=== PATIENT | female | born 1995 | race Caucasian/White ===

== ENCOUNTER 2024-11-05 13:35 | Outpatient (CLI) | payer BC, SELFPAY ==
--- NOTE | 2024-11-05 14:00 | CRLHL7_ITS ---
For Patients: As a result of the Cures Act, medical imaging exams and procedure reports are released immediately into your electronic medical record. You may view this report before your referring provider. If you have questions, please contact your health care provider. OB ULTRASOUND LESS THAN 14 WEEKS, 11/05/2024 CLINICAL HISTORY: Dating and viability. COMPARISON: None. TECHNIQUE: Real time lu scale imaging of the fetus was performed transvaginal. FINDINGS: Surgery: None. LMP: 09/07/2024. Imaging: TV. TAY by LMP: 06/14/2025. GA: 8 weeks 3 days. CRL: 0.5 cm, 6 weeks 2 days. TAY 06/29/2025. FHR: 109 bpm. GEST SAC: 1.2 cm, appears within normal limits. YOLK SAC: 60 mm, appears within normal limits. RIGHT OVARY: 3.5 x 2.2 x 2.5 cm, within normal limits. LEFT OVARY: 4.0 x 2.8 x 2.9 cm CL. Within normal limits. IMPRESSION: 1. Single living intrauterine with sonographic gestational age measuring 6 weeks 2 days and sonographic due date 06/29/2025. 2. Subchorionic hemorrhage is present measuring 2.8 x 1.1 x 0.5 cm. Elder Berrios M.D. Diagnostic Radiologist [email or web address] Transcribed: 3:39 pm DW/Dictated by: Elder Berrios MD @ 11/05/2024 3:23:00 PM (Electronically Signed)
== END 2024-11-05 13:36 | disposition home or self-care (01) ==
LOC: US 13:35
PROVIDERS: Visit Provider Physician Assistant
DX: Z34.91 Encounter for supervision of normal pregnancy, unspecified, first trimester (principal); O20.9 Hemorrhage in early pregnancy, unspecified; Z3A.01 Less than 8 weeks gestation of pregnancy
CPT/HCPCS: 76817

== ENCOUNTER 2024-11-16 07:18 | Outpatient (CLI) | payer BC, SELFPAY ==
--- NOTE | 2024-11-16 07:15 | CRLHL7_ITS ---
For Patients: As a result of the Century Cures Act, medical imaging exams and procedure reports are released immediately into your electronic medical record. You may view this report before your referring provider. If you have questions, please contact your health care provider. INDICATION: First trimester dating and viability. TECHNIQUE: Ultrasound OB pelvis transabdominal and transvaginal. Real-time lu-scale imaging of the pelvis was performed. COMPARISON: Ultrasound pelvis October 2024 FINDINGS: Intrauterine pole is identified with a CRL of 6 mm, corresponding to 6 weeks 2 day. No heart rate is identified in the current ultrasound. Yolk sac measures 3 millimeter. Gestational sac measures 1.6 cm. Persistent subchorionic hypoechogenicity, likely related to subchorionic hemorrhage. Gestational age as per LMP is 10 weeks 0 day, discordant with current ultrasound age. Right ovary measures 2.7 x 2.2 x 2.4 cm. Left ovary measures 3.6 x 2.8 x 2.8 cm. Preserved vascularity to bilateral ovaries. No suspicious adnexal mass. No significant free fluid is identified. IMPRESSION: Intrauterine pole without heartbeats, concerning for failed early . Correlate with serum beta HCG. Findings were communicated with Dr. Guru Lauren by Dr. Donaldo MD radiology at 8 a.m. on 11/16/2024. Dictated by Yesy Fulton MD @ 11/16/2024 8:01:00 AM (Electronically Signed)
== END 2024-11-16 07:19 | disposition home or self-care (01) ==
PROVIDERS: Visit Provider Physician Assistant
DX: Z34.91 Encounter for supervision of normal pregnancy, unspecified, first trimester (principal); O36.8310 Maternal care for abnormalities of the fetal heart rate or rhythm, first trimester, not applicable or unspecified; Z3A.10 10 weeks gestation of pregnancy
CPT/HCPCS: 76817

== ENCOUNTER 2024-11-21 06:04 | Day surgery (SDC) | payer BC, SELFPAY ==
[2024-11-21 06:49] VITALS: BMI 21.4
[2024-11-21 06:52] LABS: Hemoglobin* 11.9 gm/dL (12.0-16.0)
[2024-11-21 06:58] VITALS: BP 114/74; PULSE 72; RESP 16; TEMP 37; O2SAT 97
[2024-11-21] MEDS: SODIUM CHLORIDE 0.9 % (FLUSH) 10 ML SYRINGE IVF (06:59)
[2024-11-21] MEDS: 0.9 % SODIUM CHLORIDE 500 ML 500 ML 100 ML IV (07:00)
--- NOTE | 2024-11-21 07:25 | W.PM.H&PU ---
History & Physical Update History & Physical Update H&P Reviewed and patient assessed: The following changes are noted below H&P Updates: Please see Xin Garvey's note of 11/16/2024 for details of the patient's history. demise confirmed by ultrasound on 11/16/2024. Patient states that she has had some mild cramping and a scant amount of vaginal spotting. Desires surgical management of failed intrauterine . Physical exam: Vitals noted in EMR. General: Alert, cooperative, no acute distress. CV: regular rate and rhythm, no murmurs. Pulm: clear to auscultation bilaterally. Ext: nonedematous. Plan: Proceed with suction curettage as scheduled. Consent obtained. Discussed disposition of remains discussed, patient agrees to pathologic review and disposition by lab per protocol. Reviewed anticipated postop course, pain medications, Rhogam, activitiy restrictions and follow up.
[2024-11-21] MEDS: CEFAZOLIN 2 GM INJ IVP (07:39)
[2024-11-21] MEDS: BUPIVACAINE 0.25% 30 ML INJECTION (07:45)
[2024-11-21] MEDS: LIDOCAINE 1% MDV 20 ML INJECTION (07:45)
[2024-11-21 08:05] VITALS: BP 109/66; PULSE 94; RESP 16; TEMP 36.6; O2SAT 98
--- NOTE | 2024-11-21 08:05 | W.PM.GYNPROC ---
Procedure Note Date of procedure: 11/21/24 Will [facility] bill your pro fee for this procedure?: Yes Pre-op diagnosis: Early intrauterine demise. Post-op diagnosis: Same. Procedure: Suction curettage. Anesthesia: MAC and local (paracervical block) Complications: None. Surgeon: Rosa Luciano MD Estimated blood loss (mL): 5 Pathology: specimen obtained, sent to pathology (products of conception) Condition: stable Disposition: same day Findings: Small to moderate amount of products of conception. Procedure Description: After obtaining informed consent, the patient was taken to the operating room where she received monitored anesthesia care. She was prepared and draped in the normal, sterile fashion in the dorsal lithotomy position. 2 g of IV Ancef was administered intravenously. An examination was performed under anesthesia which demonstrated a normal sized midposition uterus. An open-sided bivalve speculum was placed into the vagina and the cervix easily visualized. The anterior lip of the cervix was grasped with a single-tooth tenaculum for traction. A paracervical block was administered using a total of 20 mL of a 50:50 mixture of 1% lidocaine and 0.25% Marcaine, plain. A sound was gently inserted through the cervical os into the uterus to the level of the fundus. Sound length was 7 cm. The cervix was gently dilated using Hegar dilators to a #8 dilator. An 8 mm rigid, curved suction cannula was advanced through the cervical os into the uterine cavity. Gentle suction was applied, and the uterine lining gently curetted. A small amount of products of conception and blood was removed. The suction cannula was removed. The uterine lining was gently explored using a sharp curette, and there was a slippery feel posteriorly, indicating additional tissue present. Another pass was made with the suction cannula, and further tissue was recovered. Gentle exploration with the short cannula demonstrated a gritty feel throughout. All instruments were then removed. The patient tolerated the procedure well. Sponge, lap, and needle counts were reported as correct x2. The patient was taken to the recovery room awake and in stable condition.
--- NOTE | 2024-11-21 08:11 | P.ANES_ITS ---
Anesthesia Charges Start Date/Time Anesthesia Start Date: 11/21/24 Anesthesia Start Time: 07:29 Stop Date/Time Anesthesia Stop Date: 11/21/24 Anesthesia Stop Time: 08:06 Coding CPT Codes CPT Codes: ANESTH VAGINAL PROCEDURES - 62091 ([id number]) P2 - PATIENT W/MILD SYST DISEASE, QK - WATER SERVICE SUPERVISOR 2-4 CNCRNT ANES PROC, QX - REGISTERED LAND SURVEYOR SVC W/ MD MED DIRECTION
--- NOTE | 2024-11-21 08:11 | W.ANESCHARGE ---
Anesthesia Charges Start Date/Time Anesthesia Start Date: 11/21/24 Anesthesia Start Time: 07:29 Stop Date/Time Anesthesia Stop Date: 11/21/24 Anesthesia Stop Time: 08:06 Coding CPT Codes CPT Codes: ANESTH VAGINAL PROCEDURES - 10769 ([id number]) P2 - PATIENT W/MILD SYST DISEASE, QK - STAGE HAND 2-4 CNCRNT ANES PROC, QX - SWITCH MAKER SVC W/ MD MED DIRECTION
[2024-11-21 08:15] VITALS: BP 111/68; PULSE 68; RESP 14; O2SAT 98
[2024-11-21 08:30] VITALS: BP 109/70; PULSE 66; RESP 16; O2SAT 99
[2024-11-21 08:45] VITALS: BP 114/68; PULSE 59; RESP 18; TEMP 36.6; O2SAT 99
[2024-11-21 09:00] VITALS: BP 107/60; PULSE 63; RESP 18; O2SAT 99
--- NOTE | 2024-11-21 09:05 | P.ANES_ITS ---
Anesthesia Charges Start Date/Time Anesthesia Start Date: 11/21/24 Anesthesia Start Time: 07:29 Stop Date/Time Anesthesia Stop Date: 11/21/24 Anesthesia Stop Time: 08:06 Coding CPT Codes CPT Codes: ANESTH INC/MISSED AB PROC - 34816 ([id number]) QK - BLEACH MIXER 2-4 CNCRNT ANES PROC, QX - INFORMATION TECHNOLOGY ARCHITECT SVC W/ MD MED DIRECTION, P2 - PATIENT W/MILD SYST DISEASE
--- NOTE | 2024-11-21 09:05 | W.ANESCHARGE ---
Anesthesia Charges Start Date/Time Anesthesia Start Date: 11/21/24 Anesthesia Start Time: 07:29 Stop Date/Time Anesthesia Stop Date: 11/21/24 Anesthesia Stop Time: 08:06 Coding CPT Codes CPT Codes: ANESTH INC/MISSED AB PROC - 09441 ([id number]) QK - REGULATORY TECHNICIAN 2-4 CNCRNT ANES PROC, QX - FOOD CONSULTANT SVC W/ MD MED DIRECTION, P2 - PATIENT W/MILD SYST DISEASE
== END 2024-11-21 09:09 | disposition home or self-care (01) ==
PROVIDERS: Visit Provider Obstetrics & Gynecology
PROC: (CPT 59820; principal; 2024-11-21 07:15)
DX: O02.1 Missed abortion (principal)
CPT/HCPCS: 59820; 00940; 01965; 36415; 85018; 85025; 86850; 86900; 86901; 88305; J2003; J0665; J0690; J1100; J1885; J2250; J2405; J2704; J2791; J3010; J3490; J7030

== ENCOUNTER 2025-02-04 12:06 | Outpatient (CLI) | payer BC, SELFPAY | END 2025-02-04 12:07 | disposition home or self-care (01) | LOC: LKVREF 12:08 | PROVIDERS: Visit Provider Obstetrics & Gynecology | DX: N96 Recurrent pregnancy loss (principal) | CPT/HCPCS: 84702 ==

== ENCOUNTER 2025-02-06 08:01 | Outpatient (CLI) | payer BC, SELFPAY | END 2025-02-06 08:02 | disposition home or self-care (01) | LOC: NFLDREF 02-08 13:05 | PROVIDERS: Visit Provider Obstetrics & Gynecology | DX: O20.9 Hemorrhage in early pregnancy, unspecified (principal) | CPT/HCPCS: 84702 ==

== ENCOUNTER 2025-03-01 14:18 | Outpatient (CLI) | payer BC, SELFPAY ==
[2025-03-02 16:19] LABS: Protein Creatinine Ratio Urine 0.14 (0-0.19)
[2025-03-02 17:35] LABS: Total Volume 24 Hour Urine 1825 ml; Urine Creatinine mg/24 Hour 1343 mg/Day
== END 2025-03-01 14:19 | disposition home or self-care (01) ==
PROVIDERS: Visit Provider Advanced Practice Midwife
DX: Z34.91 Encounter for supervision of normal pregnancy, unspecified, first trimester (principal); Z3A.08 8 weeks gestation of pregnancy
CPT/HCPCS: 76817; 80306; 82565; 82570; 83020; 83021; 84156; 84450; 84460; 84520; 85660; 86592; 86703; 86704; 86706; 86762; 86787; 86803; 86850; 86870; 86880; 86900; 86901; 87086; 87340

== ENCOUNTER 2025-03-15 14:42 | Outpatient (CLI) | payer BC, SELFPAY | END 2025-03-15 14:43 | disposition home or self-care (01) | LOC: NFLDREF 03-20 14:46 | PROVIDERS: Visit Provider Advanced Practice Midwife | DX: Z34.81 Encounter for supervision of other normal pregnancy, first trimester (principal); Z67.11 Type A blood, Rh negative | CPT/HCPCS: 86850 ==

== ENCOUNTER 2025-04-08 19:01 | Outpatient (CLI) | payer BC, SELFPAY | END 2025-04-08 19:02 | disposition home or self-care (01) | LOC: NFLDREF 04-12 17:18 | PROVIDERS: Visit Provider Physician Assistant | DX: D58.2 Other hemoglobinopathies (principal); Z34.91 Encounter for supervision of normal pregnancy, unspecified, first trimester | CPT/HCPCS: 84450; 84460 ==

== ENCOUNTER 2025-05-28 08:12 | Outpatient (CLI) | payer BC, SELFPAY ==
--- NOTE | 2025-05-28 08:15 | CRLHL7_ITS ---
For Patients: As a result of the Century Cures Act, medical imaging exams and procedure reports are released immediately into your electronic medical record. You may view this report before your referring provider. If you have questions, please contact your health care provider. OB ULTRASOUND SURVEY TAY by US: 10/14/2025. GA: 20 w, 1 d. INDICATION: scan. TECHNIQUE: Real time grayscale imaging of the fetus was performed. Evaluate anatomy. Transabdominal imaging performed. position: Vertex. Cervix: Visualized. Technique: Transabdominal. Length of closed cervix: 4.4 cm. Placenta/cord: Posterior. Technique: Transabdominal. Placenta tip to internal OS: 6.0 cm. Umbilical Cord: 3-vessel cord. Placenta insertion: Central. Amniotic Fluid: 4.0 cm SDP (greater than/equal to: 2- less than 8 cm). SURVEY: Observed Structures. Calvarium/Spine: Cerebellum: 2.0 cm, 20 w 1 d. Cisterna Magna: 2.8 mm. Nuchal Fold: 5.0 mm. Lateral Ventricle: 5.4 mm. CSP: Yes. Midline Falx: Yes. Choroid Plexus: Yes. Spine: Yes. Abdomen: Stomach: Yes. Abd Cord Insertion: Yes. Urinary Bladder: Yes. Kidneys: Yes. Diaphragm: Yes. Face: Nose/lips: Yes. Orbital view: Yes. Profile: Yes. Limbs: Upper Extremities: Yes. Lower Extremities: Yes. Hands: Yes. Feet: Yes. Vascular: 4-Chamber Heart: Yes. LVOT: Yes. RVOT: Yes. 3VV: Yes. 3VTV: Yes. BPD: 4.7 cm. 20 w, 2 d, 54.0%. HC: 17.9 cm. 20 w, 2 d, 51.2%. AC: 15.0 cm. 202 w, 2 d, 48.5%. FL: 3.4 cm. 20 w, 4 d, 56.4%. FL/AC ratio: 22.4%. HC/AC ratio: 1.2. heart rate: 142 bpm. age by this US: 20 w, 2 d. TAY by this US: 10/13/2025. EFW: 350.2g. Weight: 12 oz. Percentile by TAY: 59.2%. IMPRESSION: 1. Concordance of clinical and sonographic dating. 2. Normal anatomic survey. Elder Berrios M.D. Diagnostic Radiologist [email or web address] TINA/jj jj/Dictated by: Elder Berrios MD @ 05/28/2025 10:00:00 AM (Electronically Signed)
== END 2025-05-28 08:13 | disposition home or self-care (01) ==
LOC: US 08:13
PROVIDERS: Visit Provider Advanced Practice Midwife
DX: Z34.92 Encounter for supervision of normal pregnancy, unspecified, second trimester (principal); Z3A.20 20 weeks gestation of pregnancy
CPT/HCPCS: 76805

== ENCOUNTER 2025-07-29 19:04 | Outpatient (CLI) | payer BC, SELFPAY | END 2025-07-29 19:05 | disposition home or self-care (01) | LOC: NFLDREF 19:06 | PROVIDERS: Visit Provider Physician Assistant | DX: O26.892 Other specified pregnancy related conditions, second trimester (principal); Z67.91 Unspecified blood type, Rh negative | CPT/HCPCS: 86780; 86850 ==